=== PATIENT | female | born 1985 | race African-American/Black ===

== ENCOUNTER 2023-01-28 12:32 | Emergency (ER) | payer MEDICAID ==
[~2023-01-28] VITALS: Ht 167.6 cm; Wt 70.0 kg
[~2023-01-28 12:32] MED LIST: HUMALOG; LANTUS
[2023-01-28 12:49] VITALS: BP 131/76; PULSE 81; RESP 20; TEMP 97.9; O2SAT 98
[2023-01-28] MEDS ORDERED: KETOROLAC 60MG/2ML VIAL IM STA (15:13)
[2023-01-28] MEDS ORDERED: KETOROLAC 60MG/2ML VIAL IM NR (17:00)
[2023-01-28] MEDS ORDERED: CYCL5TAB PO (18:38)
[2023-01-28] MEDS ORDERED: NAPR-681 PO (18:38)
== END 2023-01-28 18:54 | disposition home or self-care (01) ==
LOC: ER 12:32
DX: S16.1XXA Strain of muscle, fascia and tendon at neck level, initial encounter (principal); R07.89 Other chest pain; M25.512 Pain in left shoulder; M25.531 Pain in right wrist; M54.9 Dorsalgia, unspecified; E11.9 Type 2 diabetes mellitus without complications; V49.9XXA Car occupant (driver) (passenger) injured in unspecified traffic accident, initial encounter; Y93.89 Activity, other specified; Y92.89 Other specified places as the place of occurrence of the external cause; Y99.8 Other external cause status
CPT/HCPCS: 71046; 72110; 73030; 73110; 82962; 99284

== ENCOUNTER 2024-05-29 13:34 | Emergency (ER) | payer MEDICAID, OTHER ==
[~2024-05-29] VITALS: Ht 167.6 cm; Wt 66.0 kg
[~2024-05-29 13:34] MED LIST changes: +CYCL5TAB PO; +NAPR-681 PO
[2024-05-29 13:56] VITALS: TEMP 98; O2SAT 100
[2024-05-29] MEDS: HYDROCODONE/ACETAMINOPHEN 5/325MG TABLET PO ONE (19:50)
[2024-05-29] MEDS ORDERED: HYDR-4001 MT (21:16)
[2024-05-29 21:52] VITALS: BP 120/74; PULSE 81; RESP 15; O2SAT 98
== END 2024-05-29 21:53 | disposition home or self-care (01) ==
LOC: ER 13:34
DX: S52.121A Displaced fracture of head of right radius, initial encounter for closed fracture (principal); E10.649 Type 1 diabetes mellitus with hypoglycemia without coma; Z79.899 Other long term (current) drug therapy; X58.XXXA Exposure to other specified factors, initial encounter; Y93.89 Activity, other specified; Y92.89 Other specified places as the place of occurrence of the external cause; Y99.8 Other external cause status
CPT/HCPCS: 29125; 73080; 73110; 82962; 99284; A4565